=== PATIENT | female | born 1950 ===

== ENCOUNTER 2025-06-27 06:56 | Day surgery (SDC) | payer MEDICARE ==
[~2025-06-27] VITALS: Ht 170.2 cm; Wt 93.9 kg
[~2025-06-27 06:56] MED LIST: Balanced Salt Epinephrine Irrigation Solution 500 mL IR SCH; Moxifloxacin HCL 0.5 MG/0.1 ML 0.4MLSYR RIGHTEYE SCH; Ondansetron 4 MG SoluTab MM PRN; PHENYLEPHRINE\\TROPICAMIDE\\TETRACAINE OPHTHALMIC DILATING SOLN RIGHTEYE PRN; Povidone-Iodine 450 DROP/30 ML Solution ONE; Povidone-Iodine 450 DROP/30 ML Solution RIGHTEYE SCH; Tetracaine HCl/Pf 0.5% Opth Soln 4 ml ONE; Triamcinolone Inj Susp 40 MG / ML 1ML Vial INJ SCH; Triamcinolone Inj Susp 40 MG / ML 1ML Vial ONE
[2025-06-27] MEDS ORDERED: LEVSOD112 PO (07:43)
--- NOTE | 2025-06-27 07:51 | NUR ---
06/27/25 0751 Ashley Olmos PT STATES ANXIETY IS AN 8/10 PRIOR TO 10MG OF VALIUM AT 0740. SHE IS RECENTLY AND IS GRIEVING WELL. PULSE OXIMERY IN PLACE SHOWING SPO2 OF 99% ON RA. TETRACAINE IN AT 0741 PLEDGETT IN AT 0742 PT TOLERATED WELL. CALL LIGHT WITHIN REACH.
--- NOTE | 2025-06-27 08:23 | NUR ---
06/27/25 0823 Jennifer Chin VITALS AT 0823 BP: 125/68 P: 65 O2: 99% WITH 10 LITERS OF BLOW BY OXYGEN
[2025-06-27 08:38] VITALS: BP 136/81
== END 2025-06-27 08:49 | disposition home or self-care (01) ==
LOC: ORSCSDS 06:56
PROVIDERS: Ophthalmology
PROC: 08RJ3JZ Replacement of Right Lens with Synthetic Substitute, Percutaneous Approach (ICD-10-PCS; principal; 2025-06-27 08:30)
DX: H25.811 Combined forms of age-related cataract, right eye (principal); E07.9 Disorder of thyroid, unspecified; Z79.82 Long term (current) use of aspirin; Z79.899 Other long term (current) drug therapy
CPT/HCPCS: A9270; J2003; J3301; V2632

== ENCOUNTER 2025-07-04 06:39 | Day surgery (SDC) | payer MEDICARE ==
[~2025-07-04] VITALS: Ht 170.2 cm; Wt 93.6 kg
[~2025-07-04 06:39] MED LIST changes: +LEVSOD112 PO; +Moxifloxacin HCL 0.5 MG/0.1 ML 0.4MLSYR LEFTEYE SCH; -Moxifloxacin HCL 0.5 MG/0.1 ML 0.4MLSYR RIGHTEYE SCH; +PHENYLEPHRINE\\TROPICAMIDE\\TETRACAINE OPHTHALMIC DILATING SOLN LEFTEYE PRN; -PHENYLEPHRINE\\TROPICAMIDE\\TETRACAINE OPHTHALMIC DILATING SOLN RIGHTEYE PRN; +Povidone-Iodine 450 DROP/30 ML Solution LEFTEYE SCH; -Povidone-Iodine 450 DROP/30 ML Solution RIGHTEYE SCH; -Triamcinolone Inj Susp 40 MG / ML 1ML Vial ONE
[2025-07-04] MEDS ORDERED: Triamcinolone Inj Susp 40 MG / ML 1ML Vial ONE (06:40)
--- NOTE | 2025-07-04 07:06 | NUR ---
07/04/25 0706 Rosio Everett PT STATES ANXIETY LEVEL IN PREOP IS 3/10. PT HAS CONTINUOUS PULSE OX MONITORING ON PT HAS CALL LIGHT IN HAND
[2025-07-04] MEDS ORDERED: Aspir 8181 MG (07:07)
[2025-07-04] MEDS ORDERED: Tetracaine HCl 0.5% Opth Soln 15 ml LEFTEYE ONE (07:52)
--- NOTE | 2025-07-04 07:55 | NUR ---
07/04/25 0755 Hanh Galvan N 122/66 62 97% ON 10 L BLOW BY O2 18
[2025-07-04 08:28] VITALS: BP 114/72
== END 2025-07-04 08:20 | disposition home or self-care (01) ==
LOC: ORSCSDS 06:39
PROVIDERS: Ophthalmology
PROC: 08RK3JZ Replacement of Left Lens with Synthetic Substitute, Percutaneous Approach (ICD-10-PCS; principal; 2025-07-04 08:00)
DX: H25.812 Combined forms of age-related cataract, left eye (principal); Z96.1 Presence of intraocular lens; Z87.891 Personal history of nicotine dependence; Z79.899 Other long term (current) drug therapy; Z79.82 Long term (current) use of aspirin
CPT/HCPCS: A9270; J2003; J3301; V2632